=== PATIENT | female | born 2000 | race African-American/Black ===

== ENCOUNTER 2020-09-11 04:18 | Emergency (ER) | payer SELFPAY ==
[2020-09-11 04:30] VITALS: BP 114/76; PULSE 103; RESP 18; TEMP 37; O2SAT 100
[2020-09-11] MEDS: ONDANSETRON INJ 4 MG/2 ML VIAL IV PUSH (05:23)
[2020-09-11] MEDS: SODIUM CHLORIDE 0.9% IV 1,000 ML 999 ML IV CONT (05:23)
--- NOTE | 2020-09-11 05:30 | PC.NURSE ---
PT INSTRUCTED TO GIVE URINE SAMPLE, GIVEN URINE CUP. PT STATES SHE COULD GO. PT STATES SHE FORGOT TO GET ANY URINE IN THE CUP. NOTIFIED.
[2020-09-11 05:31] LABS: Basophils Percent Auto 0.4 % (0.2-1.2); Eosinophils Percent Auto 0.6 % (0-4.4); Hematocrit 34.2 % (37.0-47.0); Hemoglobin 11.1 g/dL (12.0-15.0); Immature Granulocyte Absolute 0.03 K/mm3 (0.00-0.031); Immature Granulocyte Percent A 0.6 % (0-0.5); Lymphocytes Absolute Auto 2.73 K/mm3 (0.9-3.2); Lymphocytes Percent Auto 54.6 % (18.3-44.2); Mean Corpuscular HGB Conc 32.5 g/dl (32-36); Mean Corpuscular Hemoglobin 28.6 pg (26-34); Mean Corpuscular Volume 88.1 fl (80-100); Mean Platelet Volume 9.5 fl (7.4-10.4); Monocytes Absolute Auto 0.3 K/mm3 (0.1-0.6); Monocytes Percent Auto 5.4 % (2.6-8.5); Neutrophils Absolute Auto 1.9 K/mm3 (1.3-6.7); Neutrophils Percent Auto 38.4 % (45.5-73.1); Platelet Count Result 251 k/mm3 (150-375); Red Blood Count 3.88 M/mm3 (4.2-5.4); Red Cell Distribution Width 13.3 % (11.5-14.5)
[2020-09-11 05:42] LABS: Alanine Aminotransferase 12 U/L (4-35); Alkaline Phosphatase 32 U/L (45-116); Anion Gap 6 mmol/L (8-16); Aspartate Amino Transferase 19 U/L (14-36); Bilirubin,Total < 0.1 mg/dL (0.2-1.3); Blood Urea Nitrogen 16 mg/dL (8-21); Calcium 9.1 mg/dL (8.9-10.7); Carbon Dioxide 29 mmol/L (22-30); Chloride 106 mmol/L (98-107); Estimated Glomerular Filt Rate > 60; Glucose 116 mg/dL (65-105); Lipase 77 U/L (23-300); Potassium 3.2 mmol/L (3.4-5.0); Sodium 141 mmol/L (134-143)
[2020-09-11 05:48] VITALS: BP 117/79; PULSE 82; RESP 18; O2SAT 99
--- NOTE | 2020-09-11 05:48 | PC.NURSE ---
PT STATES SHE STILL ISNT ABLE TO URINATE, REFUSED STRAIGHT CATH. PT DENIES ANY NAUSEA.
--- NOTE | 2020-09-11 06:08 | ED.GENADULT ---
HPI - General Adult General Chief complaint: Abdominal Pain Stated complaint: N/V/D X1D Time Seen by Provider: 09/11/20 04:33 History of Present Illness HPI narrative: Patient is a 89-year-old female who presents the emergency department with chief complaint of nausea. Patient reports that this evening she has been treated for a urinary tract infection and the patient reports that she decided to eat some edibles with her boyfriend. The patient states that she feels nauseated but states her mouth feels very dry and her throat feels very dry. Patient also states that she feels somewhat not her normal self after eating the edibles. Patient denies localizing abdominal pain denies chest pain or shortness of breath Related Data Allergies Allergy/AdvReac Type Severity Reaction Status Date / Time No Known Allergies Allergy Verified 09/11/20 05:23 Review of Systems Review of Systems: Narrative: A 10 system review of systems was completed on the patient and is negative except for what is stated in the HPI. Nursing and ancillary documentation was reviewed. PMFSH Comments Social history the patient reports to use of edible marijuana Exam Narrative: Exam Narrative: GENERAL: Well-appearing, well-nourished, and in no acute distress. HEAD: Normocephalic, atraumatic. EYES: PERRLA and EOMI. ENT: Nares clear, no rhinorrhea or epistaxis. Mucous membranes moist. NECK: Supple. CHEST: Clear to auscultation. No respiratory distress. HEART: Regular rate and rhythm. No murmur heard. Normal peripheral pulses. ABDOMEN: Soft, nontender, nondistended, normal active bowel sounds. EXTREMITIES: Normal range of motion. No edema. SKIN: Warm, dry, no rash. NEURO: No focal deficits. Alert and oriented x3. PSYCH: Normal mood and affect. Course Vital Signs Vital signs: Vital Signs Temperature 37.0 C 09/11/20 04:30 Pulse Rate 103 H 09/11/20 04:30 Respiratory Rate 18 09/11/20 04:30 Blood Pressure 114/76 09/11/20 04:30 Pulse Oximetry 100 09/11/20 04:30 Temperature 37.0 C 09/11/20 04:30 Pulse Rate 82 09/11/20 05:48 Respiratory Rate 18 09/11/20 05:48 Blood Pressure 117/79 09/11/20 05:48 Pulse Oximetry 99 09/11/20 05:48 Medical Decision Making Vital Signs Vital Signs: Vital Signs Temperature 37.0 C 09/11/20 04:30 Pulse Rate 103 H 09/11/20 04:30 Respiratory Rate 18 09/11/20 04:30 Blood Pressure 114/76 09/11/20 04:30 Pulse Oximetry 100 09/11/20 04:30 Temperature 37.0 C 09/11/20 04:30 Pulse Rate 82 09/11/20 05:48 Respiratory Rate 18 09/11/20 05:48 Blood Pressure 117/79 09/11/20 05:48 Pulse Oximetry 99 09/11/20 05:48 Lab Data Result diagrams: 09/11/20 05:20 09/11/20 05:20 Labs: Lab Results 09/11/20 09/11/20 Range/Units 05:20 05:20 WBC 5.0 (4.5-10.0) K/mm3 RBC 3.88 L (4.2-5.4) M/mm3 Hgb 11.1 L (12.0-15.0) g/dL Hct 34.2 L (37.0-47.0) % MCV 88.1 (80-100) fl MCH 28.6 (26-34) pg MCHC 32.5 (32-36) g/dl RDW 13.3 (11.5-14.5) % Plt Count 251 (150-375) k/mm3 MPV 9.5 (7.4-10.4) fl Immature Gran % (Auto) 0.6 H (0-0.5) % Neut % (Auto) 38.4 L (45.5-73.1) % Lymph % (Auto) 54.6 H (18.3-44.2) % Camp % (Auto) 5.4 (2.6-8.5) % Eos % (Auto) 0.6 (0-4.4) % Baso % (Auto) 0.4 (0.2-1.2) % Lymph # (Auto) 2.73 (0.9-3.2) K/mm3 Camp # (Auto) 0.3 (0.1-0.6) K/mm3 Eos # (Auto) 0.0 (0-0.3) K/mm3 Baso # (Auto) 0.0 (0.0-0.1) K/mm3 Abs Immat Gran (auto) 0.03 (0.00-0.031) K/mm3 Absolute Neuts (auto) 1.9 (1.3-6.7) K/mm3 Absolute Nucleated RBC 0.0 (0.0-0.012) K/mm3 Nucleated RBC % 0.0 (0.0-0.2) % Sodium 141 (134-143) mmol/L Potassium 3.2 L (3.4-5.0) mmol/L Chloride 106 (98-107) mmol/L Carbon Dioxide 29 (22-30) mmol/L Anion Gap 6 L (8-16) mmol/L BUN 16 (8-21) mg/dL Creatinine 0.70 (0.7-1.0) mg/dL Estim Creat Clear Calc Not Reportable Est
--- NOTE | 2020-09-11 06:24 | PC.NURSE ---
PT STATES SHE STILL ISN'T ABLE TO URINATE AT THIS TIME. PT GIVEN CHIPS AND WATER.
[2020-09-11] MEDS: POTASSIUM CHLORIDE 20 MEQ TABLET 40 MEQ PO (06:34)
[2020-09-11 07:06] VITALS: BP 126/78; PULSE 90; RESP 14; O2SAT 99
== END 2020-09-11 07:07 | disposition home or self-care (01) ==
PROVIDERS: Emergency Provider Emergency Medicine
DX: R11.0 Nausea (principal)
CPT/HCPCS: 36415; 80053; 83690; 85025; 96361; 96374; 99284; A9270; J2405; J7030